=== PATIENT | female | born 1930 | race Caucasian/White ===

== ENCOUNTER 2016-10-14 10:52 | Observation (INO) | payer MEDICARE, SELFPAY ==
[~2016-10-14] VITALS: Ht 157.5 cm; Wt 53.8 kg
[2016-10-14] MEDS ORDERED: SODIUM CHLORIDE 0.9% 1000 ML IV ONE (11:30)
--- NOTE | 2016-10-14 11:52 | REP ---
Clinical: Near-syncopal episode . Comparison: None . Findings: The mediastinum and cardiac silhouette are stable and within normal limits for portable technique. The lung murrell are clear without acute consolidation, effusion, or pneumothorax. Skeletal structures are intact. Impression: No acute cardiopulmonary process appreciated. Signed by Francis Hamilton MD 10/14/2016 11:43 A
[2016-10-14 12:01] LABS: BASO % 0.7 % (0.0-1.0); EOS # 0.3 K/mm3 (0.0-0.50); EOS % 4.1 % (0.0-3.0); LARGE UNSTAINED CELL # 0.2 K/mm3 (0.0-0.4); LARGE UNSTAINED CELL % 3.1 % (0.0-4.0); LYMPH # 1.6 K/mm3 (1.5-4.5); LYMPH % 21.7 % (24.0-44.0); MEAN CORPUSCULAR HEMOGLOBIN 32.7 pg (27.0-33.0); MEAN CORPUSCULAR HGB CONC 33.1 g/dl (32.0-36.5); MEAN CORPUSCULAR VOLUME 98.8 fl (80.0-96.0); MONO # 0.4 K/mm3 (0.0-0.8); MONO % 6.4 % (0.0-5.0); NEUTROPHILS # 4.2 K/mm3 (1.8-7.7); NEUTROPHILS % 63.9 % (36.0-66.0); PLATELET COUNT, AUTOMATED 250 k/mm3 (150-450); RED CELL DISTRIBUTION WIDTH 12.2 % (11.5-14.5); WHITE BLOOD COUNT 6.6 K/mm3 (4.0-10.0)
[2016-10-14 12:11] LABS: INR 0.9
[2016-10-14 12:43] LABS: CALCIUM LEVEL 8.6 MG/DL (8.8-10.2); CREATININE FOR GFR 1.17 MG/DL (0.55-1.02); FREE T4 0.98 NG/DL (0.76-1.46); GLOMERULAR FILTRATION RATE 46.7 (>32); MAGNESIUM LEVEL 2.2 MG/DL (1.8-2.4); POTASSIUM SERUM 4.2 MEQ/L (3.5-5.1)
[2016-10-14] MEDS ORDERED: DIOV160T2 PO (12:46)
[2016-10-14] MEDS ORDERED: AMLO2.5T PO (12:46)
[2016-10-14] MEDS ORDERED: LEVO5OPD OU (12:46)
[2016-10-14] MEDS ORDERED: LOVA20TA2 PO (12:46)
[2016-10-14] MEDS ORDERED: NS 1,000 ML IV SCH (13:32)
[2016-10-14] MEDS ORDERED: ONDANSETRON 4MG/2ML VIAL (J2405) IV PRN (13:45)
[2016-10-14] MEDS ORDERED: ACETAMINOPHEN TAB 650MG DOSE (2X325MG) PO PRN (13:45)
--- NOTE | 2016-10-14 14:36 | HPE ---
DATE OF ADMISSION: 10/14/2016 CHIEF COMPLAINT: An 86-year-old female coming in complaining of syncope. HISTORY OF PRESENT ILLNESS: This is a pleasant 86-year-old female with significant past medical history of glaucoma, hypertension, hyperlipidemia, who is presenting complaining of a syncopal episode today. The patient normally resides back and forth between [place] and [place], and she did have a syncopal episode in [place] several months ago; but at that time, she had a nonsurgical femur fracture. The patient states that at that time, she was evaluated extensively for the syncopal episode and the nonsurgical femur fracture without any significant finding, and she was able to work with physical therapy, ambulate with a walker, and subsequently with a cane. The patient normally walks with a cane but has not been utilizing the cane, as she has been golfing a couple of days ago. She also mentions that she had diarrhea a couple of days ago, as well , but that has resolved with Imodium usage. The patient denies of any sick contact. Denies of any antibiotic use after this. The patient also denies of any precipitating factor, such as chest pain, shortness of breath, dizziness that might have contributed to her syncopal episode today. The patient was walking with her family today when she felt "hot and feeling like she is going to pass out." Her did take her to a shade, and she did remove her sweater, and subsequently, she passed out and lost consciousness. The loss of consciousness did not last a significant amount of time, and when she regained consciousness, and was brought to the emergency room for further evaluation. The patient also denies of any prodromal illness prior to this, such as fever, chills, cough, sputum production, abdominal pain, diarrhea, other than 2 days ago, which was stopped with Imodium usage and has not recurred since, and also denies currently of any dysuria symptoms. The patient was evaluated in the emergency room (ER) without any significant finding, but her heart rate was noted to be in the 50s. The patient was asymptomatic. Denies of any shortness of breath, dizziness, chest pain or discomfort, or loss of consciousness with a heart rate of 50 in the emergency room. The patient is being admitted for further evaluation and treatment. REVIEW OF SYSTEMS: Ten-point review of systems is negative other than those described in the history of present illness (HPI). PAST MEDICAL HISTORY: Significant for: 1. Hypertension. 2. Hyperlipidemia. 3. Glaucoma. 4. Cataract history. SURGICAL HISTORY: Includes: 1. Hip replacement. 2. Cataract surgery. SOCIAL HISTORY: The patient denies of smoking or drinking a significant amount, but she does occasionally drink a beer or wine once a day socially. She did have one beer yesterday. Denies of any intravenous (IV) drug abuse. FAMILY MEDICAL HISTORY: Is noncontributory due to the patient's age. The patient has allergy to PENICILLIN. Her home medications are as follows: - levobunolol 0.5% ophthalmic drop, one drop daily - Diovan/hydrochlorothiazide combination pill, 160/12.5 mg one tablet by mouth daily - amlodipine 2.5 mg by mouth nightly - lovastatin 20 mg by mouth nightly In terms of physical examination, her vital signs are as follows: Temperature is 98, heart rate is 64, blood pressure was elevated initially up to 228/88, but repeat seems to be 209/84. Again, the patient seems to be asymptomatic with these blood pressures. Denies of any headache, shortness of breath, dizziness. Resting comfortably in the emergency room. Will repeat these vital signs. She is saturating 99% on room air on my examination. HEENT: Normocephalic. No trauma noted. Inspection of the eyes, nose, and throat within normal. Pupils equal, round, and reactive to light and accommodation. Mucosa is moist. NECK: Supple with no tracheal deviation. CARDIAC-DE [place] TOR[place]: S1, S2. At this time, regular rate and rhythm. Pulse is present. LUNGS: Equal air entry. Denied any wheezes, rales, or rhonchi. ABDOMEN: Soft, nontender. Bowel sounds present. LOWER EXTREMITIES: With no significant pitting edema. Capillary refill present in all four extremities. SKIN: Is intact. Warm to touch. Afebrile. The patient is currently awake, alert, oriented times three. Cranial nerves grossly intact. Motor and sensory is intact. Normal mood and affect for current situation. DIAGNOSTIC STUDIES: The patient had an electrocardiogram (EKG) showing heart rate of 53, sinus, without any ST elevation or blockage. DIAGNOSTIC LABORATORIES: The patient had INR that is within normal. PT of 12.2 WBC, hemoglobin and hematocrit, and platelets all within normal. Basic metabolic profile also within normal except for chloride of 108, BUN of 37 , creatinine of 1.17, calcium of 8.6. Otherwise, basic metabolic profile is within normal. Magnesium is within normal. Cardiac enzyme times one has been within normal. TSH and free T4 is within normal, as well. IMAGING-DE LA TORRE: The patient had a chest x-ray, which showed no acute cardiopulmonary process, as per radiology. ASSESSMENT AND PLAN: This is a pleasant 86-year-old female who travels back and forth between [place] and [place], with comorbidities of glaucoma utilizing beta kiko eyedrops, hypertension, hyperlipidemia, who had a syncopal episode in [place] due to a nonsurgical femur fracture several months ago and subsequently today had a syncopal episode precipitated by diarrhea a couple of days ago. 1. Syncope. Most likely secondary from dehydration from diarrhea and activity, as she played 18 rounds of golf recently. In addition, a heart rate of 50, which is asymptomatic. The patient will be placed on telemetry for further evaluation for arhythmia. Will get serial cardiac enzymes judiciously. Replace intravenous (IV) fluids. Further evaluate with an echocardiogram. Although the patient states that her diarrhea has stopped with Imodium use, we will obtain a stool studies if the patient is able to produce and also urinalysis (UA) for further evaluation. The patient is asymptomatic. Therefore, will have a higher threshold for any antibiotic use therapy. Continue to monitor the heart rate. 2. Glaucoma. At this time, will hold levobunolol for tonight. Resume after monitoring her heart rate. 3. Hypertension. Will hold Diovan and hydrochlorothiazide combination pill for now. Resume amlodipine and utilize hydralazine as needed for high blood pressure if severely symptomatic. 4. Hyperlipidemia. Resume statin. 5. Deep venous thrombosis (DVT) prophylaxis. MTDD
[2016-10-14] MEDS: HEPARIN SOD (PORCINE) 5000 UNITS/ML VIAL SC SCH ×2 (16:06→21:50)
[2016-10-14 17:15] VITALS: BP 192/58
[2016-10-14 20:35] VITALS: BP 152/50
[2016-10-14] MEDS ORDERED: SIMVASTATIN 20 MG TAB PO SCH (21:00)
[2016-10-14] MEDS: **hydrALAZINE** 10 MG TAB PO PRN (23:06)
[2016-10-15 00:10] VITALS: BP 126/50
[2016-10-15 04:32] VITALS: BP 180/60
[2016-10-15] MEDS: **hydrALAZINE** 10 MG TAB PO PRN (05:21)
[2016-10-15] MEDS: HEPARIN SOD (PORCINE) 5000 UNITS/ML VIAL SC SCH (05:21)
[2016-10-15 06:23] LABS: MEAN CORPUSCULAR HEMOGLOBIN 32.5 pg (27.0-33.0); MEAN CORPUSCULAR HGB CONC 33.6 g/dl (32.0-36.5); MEAN CORPUSCULAR VOLUME 96.9 fl (80.0-96.0); RED CELL DISTRIBUTION WIDTH 12.5 % (11.5-14.5); WHITE BLOOD COUNT 5.7 K/mm3 (4.0-10.0)
[2016-10-15 06:53] LABS: ANION GAP 6 MEQ/L (8-16); BLOOD UREA NITROGEN 26 MG/DL (7-18); CALCIUM LEVEL 8.8 MG/DL (8.8-10.2); CARBON DIOXIDE LEVEL 29 MEQ/L (21-32); CHLORIDE LEVEL 110 MEQ/L (98-107); CREATININE FOR GFR 0.92 MG/DL (0.55-1.02); GLOMERULAR FILTRATION RATE > 60.0 (>32); GLUCOSE, FASTING 92 MG/DL (83-110); POTASSIUM SERUM 3.8 MEQ/L (3.5-5.1); SODIUM LEVEL 145 MEQ/L (136-145)
--- NOTE | 2016-10-15 07:25 | ECGEPIP ---
Stationary ECG Study [facility] - ED Test Date: 2016-10-14 Pat Name: AMELIA CARY Department: Room: [place] [address] Gender: F Communications Senior Associate: MARIA ANTONIA : 1930 Requested By: Rosette Henderson Order Number: [id number] Reading MD: Rosette Henderson Measurements Intervals [place] Rate: 53 P: 65 CT: 153 QRS: 18 QRSD: 84 T: 19 QT: 376 QTc: 356 Interpretive Statements SINUS BRADYCARDIA WITH MARKED SINUS ARRHYTHMIA POSSIBLE LEFT ATRIAL ENLARGEMENT POSSIBLE RIGHT VENTRICULAR CONDUCTION DELAY NO PRIOR FOR COMPARISON Electronically Signed On 10-15-2016 7:25:14 EDT by Rosette Henderson
[2016-10-15 08:00] VITALS: BP 153/67
[2016-10-15] MEDS ORDERED: VALSARTAN 80 MG TAB (DIOVAN) PO SCH (09:00)
[2016-10-15 09:30] VITALS: BP 165/50
[2016-10-15 09:32] VITALS: BP_SYST 153; BP_SYST 170; BP_DIAS 50; BP_DIAS 67
--- NOTE | 2016-10-15 18:26 | DS.PDOC ---
Discharge Summary General Date of Admission Oct 14, 2016 at 13:32 Date of Discharge 10/15/2016 Discharge Summary PRIMARY CARE PHYSICIAN: Dr. Ashkan Bruno in [place], [place] Junior Software Developer: Dr. Isaiah Miller in [place], [place] ATTENDING AT TIME OF DISCHARGE: Dr. Deep Conway DISCHARGE DIAGNOS(E)S: 1. Syncope 2. Hypertension 3. Hyperlipidemia 4. Glaucoma HPI & HOSPITAL COURSE: Ms. Ortiz is an 86-year-old female who was admitted to the hospital after a syncopal episode while visiting the [place]. She is a resident of [facility] in [place], and is only here on vacation. Apparently she did have some diarrhea a few days ago, she is also been out playing golf, and she has been out being active on her vacation during these warm summer days. She has been taking her medication faithfully as prescribed which does include a diuretic, but she apparently has not increased her oral intake of fluids despite her increased activity. Upon arrival EKG did show bradycardia, but she is normalized through the night. No events were recorded on telemetry through the night. She was found to have an elevated BUN to creatinine ratio, with a slight bump in her creatinine, indicating dehydration. She was treated with fluid repletion, and this has significantly improved by morning. During her hospitalization cardiac enzymes were cycled and found to be negative. Thyroid functions are within normal limits. A GI panel was taken to evaluate for the etiology of her diarrhea, this was completely negative. Otherwise, the remainder of her electrolytes were within normal limits including a potassium and magnesium. She had just had an echocardiogram as well as a 30 day event monitor performed in [place] per her php engineer, therefore this was not repeated. The etiology of her syncope appears to be vasovagal/orthostatic in the setting of dehydration. Orthostatic vital signs were negative. She was seen and evaluated by physical therapy this morning, she does ambulate with a cane, and is otherwise safe for discharge at this time. Ms Ortiz is quite pleasant this morning, she has not felt any additional dizziness, lightheadedness, since her arrival. She denies any chest discomfort, palpitations, shortness of breath, abdominal pain, diarrhea, nausea, vomiting, and the remainder of her review of systems was completely negative. She is actually requesting to go home. PHYSICAL EXAMINATION ON DISCHARGE: GENERAL: Awake, alert, oriented 3. CARDIOVASCULAR EXAMINATION: Regular rate and rhythm, with no rubs, gallops, or murmur. RESPIRATORY EXAMINATION: Clear to auscultation bilaterally with no wheezes, rales, or rhonchi. ABDOMINAL EXAMINATION: Soft, nontender, nondistended. Bowel sounds present. EXTREMITIES: No clubbing or edema noted. 2+ pulses in the radial bilaterally. DISPOSITION: Home DISCHARGE INSTRUCTIONS: She already has an appointment scheduled with her php engineer next Wednesday, I recommend that she also follow up with her primary care provider within the next 7-10 days. Activity as tolerated, recommend ambulation with cane. Diet as tolerated. If symptoms return, or if you experience worsening of your symptoms , please call your doctor or return to the emergency department. My preceptor for this patient encounter was physically present in the building during the encounter and was fully available. As needed, all aspects of the patient interview, examination, medical decision making process, and medical care plan development were reviewed and approved by the preceptor. Preceptor is aware and concurs with the plan as stated in the body of this note and will attest to such by his/her cosignature. Vital Signs/I&Os Vital Signs Date Time Temp Pulse Resp B/P (MAP) Pulse Ox O2 Delivery O2 Flow Rate FiO2 10/15/16 09:32 153/67 10/15/16 09:32 74 10/15/16 08:00 97.6 18 99 Room Air I&O- Last 24 Hours up to 6 AM 10/15/16 06:00 Intake Total 1525 ml Output Total 1550 ml Balance -25 ml Laboratory Data Labs 24H Laboratory Tests 2 10/14/16 19:16: Total Creatine Kinase 54, Creatine Kinase MB 1.0, Creatine Kinase MB Relative Index 1.85, Troponin I < 0.02 10/14/16 21:21: Total Creatine Kinase 70, Creatine Kinase MB 1.0, Creatine Kinase MB Relative Index 1.42, Troponin I < 0.02 10/14/16 23:02: Urine Appearance CLEAR, Urine Color STRAW, Urine pH 5.0, Urine Specific [place] 1.009, Urine Protein NEGATIVE, Urine Glucose (UA) NEGATIVE, Urine Ketones NEGATIVE, Urine Urobilinogen 0.2, Urine Bilirubin NEGATIVE, Urine Leukocyte Esterase TRACEH, Urine Blood NEGATIVE, Urine Nitrite NEGATIVE, Urine WBC (Auto) 8H, Urine RBC (Auto) 2, Urine Hyaline Casts (Auto) 0, Urine Bacteria (Auto) NEGATIVE, Urine Squamous Epithelial Cells 0, Urine Sperm (Auto) 10/15/16 05:37: Total Creatine Kinase 52, Creatine Kinase MB 1.0, Creatine Kinase MB Relative Index 1.92, Troponin I < 0.02, Anion Gap 6L, Glomerular Filtration Rate > 60.0, Blood Urea Nitrogen 26H, Creatinine 0.92, Sodium Level 145, Potassium Level 3.8 , Chloride Level 110H, Carbon Dioxide Level 29, Calcium Level 8.8 CBC/BMP Laboratory Tests 10/15/16 05:37 Red Blood Count 3.59 L, Mean Corpuscular Volume 96.9 H, Mean Corpuscular Hemoglobin 32.5, Mean Corpuscular Hemoglobin Concent 33.6, Red Cell Distribution Width 12.5, Calcium Level 8.8, Total Creatine Kinase 52 Microbiology Microbiology 10/15/16 Gastrointestinal Tract Panel (PCR) - Final, Complete Discharge Medications Scheduled (Diovan Hct 160-12.5 mg) 1 Tab Tab, 1 TAB PO DAILY, (Reported) Amlodipine Besylate (Amlodipine Besylate) 2.5 Mg Tab, 2.5 MG PO QHS, (Reported) Levobunolol HCl (Levobunolol HCl 0.5% Opth) 100 Drop/5 Ml Soln, 1 DROP OU DAILY, (Reported) Lovastatin (Lovastatin) 20 Mg Tab, 20 MG PO QHS, (Reported) Allergies Coded Allergies: Penicillins (Verified Allergy, Unknown, 10/14/16) GME ATTESTATION GME ATTESTATION My preceptor for this patient encounter was physically present in the building during the encounter and was fully available. As needed, all aspects of the patient interview, examination, medical decision making process, and medical care plan development were reviewed and approved by the preceptor. Preceptor is aware and concurs with the plan as stated in the body of this note and will attest to such by his/her cosignature. ATTENDING NOTE I have both independently examined this patient as well as reviewed the note. I have discussed in detail with the resident the findings and plan of treatment as documented in the residents note. I will continue to follow the patient and offer further guidance to the patients care as necessary during this hospital stay. DILIP Randle MD, DO Oct 15, 2016 18:26 DEEP CONWAY MD Oct 16, 2016 15:47
== END 2016-10-15 13:07 | disposition home or self-care (01) ==
LOC: EDBD 10:52 → M ED 10:52 → EDSEX 10:52 → M ED INP 13:32 → M PCU 17:16
PROVIDERS: ADMIT Internal Medicine; ATTEND Hospitalist
DX: R55 Syncope and collapse (principal); E86.0 Dehydration; I10 Essential (primary) hypertension; E78.4 Other hyperlipidemia; H40.9 Unspecified glaucoma; Z79.899 Other long term (current) drug therapy
CPT/HCPCS: 36415; 71010; 80048; 81001; 82550; 82553; 83735; 84439; 84443; 84484; 85025; 85027; 85610; 87507; 93005; 93041; 94760; 96360; 96361; 96372; 97161; 99285; G0378